=== PATIENT | male | born 1985 | race Caucasian/White ===

== ENCOUNTER 2017-08-05 14:41 | Emergency (ER) | payer SELFPAY ==
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
[2017-08-05] MEDS ORDERED: LIDOCAINE 1% W/EPI 1:100,000 MDV 50 ML VIAL ONE (16:11)
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
[2017-08-05 16:55] VITALS: TEMP 98
[2017-08-05 16:57] VITALS: BP 115/82; O2SAT 99
== END 2017-08-05 16:51 | disposition home or self-care (01) ==
LOC: ER 14:41
PROC: 0JQ10ZZ Repair Face Subcutaneous Tissue and Fascia, Open Approach (ICD-10-PCS; principal; 2017-08-05)
DX: S01.81XA Laceration without foreign body of other part of head, initial encounter (principal); Y00.XXXA Assault by blunt object, initial encounter; Y92.009 Unspecified place in unspecified non-institutional (private) residence as the place of occurrence of the external cause; F17.210 Nicotine dependence, cigarettes, uncomplicated
CPT/HCPCS: 70450; 70486; 76377; 99284

== ENCOUNTER 2020-09-15 12:21 | Emergency (ER) | payer SELFPAY ==
--- NOTE | 2020-09-15 13:57 | ER ---
Nurse's Notes [facility] Name: Papa Hyatt Age: 35 yrs Sex: Male : 1985 Arrival Date: 09/15/2020 Time: 12:25 Bed Waiting Private MD: Diagnosis: ED Course: 09/15 12:25 Patient arrived in ED. ds1 12:45 Patient's name was called from ER lobby. No response. Unable to locate patient. Will jl7 disposition as left without being seen by a provider. Administered Medications: No medications were administered Outcome: 13:57 Patient left the ED. jl7 Signatures: Amanda Dale ds1 Brooke Putnam RN RN jl7
== END 2020-09-15 13:57 | disposition left against medical advice (07) ==
LOC: ER 12:21
DX: Z02.9 Encounter for administrative examinations, unspecified (principal)